=== PATIENT | female | born 1950 ===

== ENCOUNTER 2018-08-27 11:38 | Outpatient (CLI) | payer MEDICARE, OTHER, SELFPAY ==
--- NOTE | 2018-08-27 10:10 | DI.RAD_ITS ---
SYMPTOM/DIAGNOSIS: PAIN LEFT KNEE: There is severe narrowing of the lateral femoral tibial joint and mild to moderate spurring and sclerosis. There is mild widening of the lateral femoral tibial joint. A joint effusion is seen. There is mild spurring at the articular aspect of the patella. Spurring is also seen at the quadriceps insertion on the patella. 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
--- NOTE | 2018-08-27 10:12 | DI.RAD_ITS ---
SYMPTOM/DIAGNOSIS: PAIN RIGHT KNEE: There is narrowing of the medial femoral tibial joint, periarticular spurring and sclerosis. There is also some flattening of the medial femoral condyle and medial tibial plateau. There is widening of the lateral femoral tibial joint. Spurring is also seen at the articular aspect of the patella as well as quadriceps insertion. There is a small joint effusion. IMPRESSION: Severe degenerative changes of the medial femoral tibial joint as well as patellofemoral joint.
== END 2018-08-27 11:58 ==
PROVIDERS: PCP Internal Medicine; Referring Provider Internal Medicine; Visit Provider Orthopaedic Surgery
DX: M25.562 Pain in left knee (principal); M17.0 Bilateral primary osteoarthritis of knee; M25.561 Pain in right knee
CPT/HCPCS: 99201; 99202; 73560